=== PATIENT | male | born 1945 | race Caucasian/White ===

== ENCOUNTER 2016-09-28 07:31 | Day surgery (SDC) | payer MEDICARE, OTHER ==
[2016-09-27 10:34] VITALS: BMI 23.1
[~2016-09-28 07:31] MED LIST: LACTATED RINGERS 1,000 ML IV SCH
[2016-09-28 08:13] VITALS: RESP 16; TEMP 98
[2016-09-28] MEDS ORDERED: PROPOFOL 10 MG/ML 20 ML VIAL IV ONE (08:47)
--- NOTE | 2016-09-28 09:11 | P.PCN ---
Date of Procedure: 09/28/16 Procedure(s) Performed: Brief history: Patient is a pleasant 71-year-old white male scheduled for an elective upper endoscopy as well as colonoscopy as a part of evaluation of GERD/history of colon polyps and family history of colon cancer. Mother was diagnosed with colon cancer at age 60. Procedure performed: Esophagogastroduodenoscopy with biopsy Colonoscopy with snare polypectomy Preoperative diagnosis: GERD History of colon polyps and family history of colon cancer Anesthesia: MAC Procedure: After informed consent was obtained from the patient was brought into the endoscopy unit and IV sedation was administered by anesthesia under continuous monitoring. Initially upper endoscopy was done. The Olympus GF 160 video endoscope was inserted inserted into the mouth and esophagus intubated without any difficulty and was gradually advanced into the stomach and duodenum and carefully examined. The bulb and second part of the duodenum appeared normal. The scope was then withdrawn into the stomach adequately insufflated with air and upon careful examination the antrum and mild gastritis and biopsies were done from this area. The body, cardia and fundus appeared normal. The scope was then withdrawn into the esophagus. Mall hiatal hernia noted. The GE junction was located at 40 cm to the incisors. It appeared regular with superficial erosions consistent with LA grade A reflux esophagitis Rest of the esophagus appeared normal. Patient tolerated the procedure well. At this time the patient continued to remain sedation. Initial digital rectal examination was normal. Olympus CF 160 video colonoscope was then inserted into the rectum and gradually advanced to the cecum without any difficulty. Careful examination was performed as the scope was gradually being withdrawn. The prep was excellent. The cecum, ascending colon, transverse colon, descending colon, sigmoid colon appeared normal. In the rectum; there was a 1 to polyp that was removed by snare polypectomy. The rectum appeared normal. Retroflexion was performed in the rectum and no lesions were noted. Patient tolerated the procedure well. Impression: 1. Upper endoscopy revealed mild gastritis and a leg grade A reflux esophagitis 2. Colonoscopy revealed 1 cm rectal sigmoid polyp status post polypectomy. Recommendations: Findings of this examination were discussed with the patient as well as his family. He was advised to follow with the biopsy results. If the biopsy shows a tubular adenoma he can have a repeat coloscopy in 5 years. He was also advised to start on Zantac 150 milligrams twice daily for 2 months and follow anti-reflux measures.
[2016-09-28 09:33] VITALS: BP 133/85; PULSE 65
== END 2016-09-28 09:55 | disposition home or self-care (01) ==
LOC: ORWHC2ENDO 07:31
PROVIDERS: ATTEND Internal Medicine Gastroenterology
DX: Z12.11 Encounter for screening for malignant neoplasm of colon (principal); D12.7 Benign neoplasm of rectosigmoid junction; K44.9 Diaphragmatic hernia without obstruction or gangrene; K29.50 Unspecified chronic gastritis without bleeding; K21.0 Gastro-esophageal reflux disease with esophagitis; Z80.0 Family history of malignant neoplasm of digestive organs; Z86.010 Personal history of colon polyps; I25.10 Atherosclerotic heart disease of native coronary artery without angina pectoris; I10 Essential (primary) hypertension; Z87.891 Personal history of nicotine dependence; I25.2 Old myocardial infarction; E78.5 Hyperlipidemia, unspecified; N40.0 Benign prostatic hyperplasia without lower urinary tract symptoms; Z79.82 Long term (current) use of aspirin; Z79.899 Other long term (current) drug therapy; Z88.5 Allergy status to narcotic agent; Z88.8 Allergy status to other drugs, medicaments and biological substances
CPT/HCPCS: 88305; 88342; 45385; 43239; J2704

== ENCOUNTER → 2017-02-11 | Outpatient (CLI) | payer MEDICARE, OTHER ==
--- NOTE | 2017-02-11 18:07 | MR ---
EXAMINATION TYPE: MR shoulder RT wo con DATE OF EXAM: 02/11/2017 COMPARISON: None HISTORY: Right shoulder pain TECHNIQUE: Multiplanar, multisequence imaging of the right shoulder is performed without contrast. FINDINGS: Rotator Cuff: Abnormal increased signal present within the rotator cuff on T2-weighted sequences and T1-weighted sequences. There is abnormal thickening present as well as frayed appearance, full-thickn ess tear is present which is partial. There is associated tendinopathy. There is a distal acromial sp ur. Acromioclavicular Joint: Hypertrophic change at the acromioclavicular joint causes mass effect on the musculotendinous junction of supraspinatus. Fluid signal is present in the subacromial subdeltoid bu rsa. Glenohumeral Joint: Intact Labrum: Abnormal increased signal is present in the glenoid labrum. This may represent some degenerat awilda change, no kvng labral tear is evident Biceps Tendon: Long head of biceps tendon shows fluid signal around its substance but is in normal po sition in the bicipital groove. Bone marrow signal: Subchondral edema change of the acromioclavicular joint, pseudocysts present in t he humeral head. Other: There may be some loose bodies present along the level of the subscapularis tendon. IMPRESSION: Partial full-thickness tear of the rotator cuff, extensive tendinopathy, correlate for impingement. A dditional findings above.
== END ==
LOC: RADMRIMAIN 12:38
PROVIDERS: ATTEND Orthopaedic Surgery
DX: M75.101 Unspecified rotator cuff tear or rupture of right shoulder, not specified as traumatic (principal)

== ENCOUNTER 2018-10-18 07:32 | Observation (INO) | payer MEDICARE, OTHER ==
[2018-10-18] MEDS ORDERED: NITROGLYCERIN SL TABS 0.4 MG TAB SUBLINGUAL STA (08:00)
[2018-10-18] MEDS ORDERED: HYDROmorphone 1 MG/ML 1 ML SYRINGE IVP STA (08:00)
[2018-10-18 08:03] LABS: Basophils # (A) 0.1 k/uL (0-0.2); Basophils % (A) 1 %; Eosinophils # (A) 0.7 k/uL (0-0.7); Eosinophils % (A) 6 %; HCT 45.9 % (39.0-53.0); HGB 15.1 gm/dL (13.0-17.5); Lymphocytes # (A) 2.5 k/uL (1.0-4.8); Lymphocytes % (A) 22 %; MCH 29.8 pg (25.0-35.0); MCHC 32.8 g/dL (31.0-37.0); MCV 90.9 fL (80.0-100.0); Mean Platelet Volume 8.3; Monocytes # (A) 0.5 k/uL (0-1.0); Monocytes % (A) 5 %; Neutrophils # (A) 7.5 k/uL (1.3-7.7); Neutrophils % (A) 65 %; Platelet Count 207 k/uL (150-450); RBC 5.06 m/uL (4.30-5.90); RDW 13.3 % (11.5-15.5); WBC 11.5 k/uL (3.8-10.6)
--- NOTE | 2018-10-18 08:11 | ED ---
General Adult HPI - General Chief complaint: Chest Pain Stated complaint: COLETTE Time Seen by Provider: 10/18/18 07:33 Source: patient, RN notes reviewed, old records reviewed Mode of arrival: wheelchair Limitations: no limitations - History of Present Illness Initial comments: 73-year-old male presents for evaluation of dyspnea and chest pain. Patient's symptoms began 3 weeks prior. 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 Patient has no previous history of asthma. He has had minimal cough with his dyspnea. His denied any significant chest pain until approximately one hour prior to arrival he developed some anterior left-sided chest pain and back pain. Patient denied nausea or diaphoresis associated with symptoms. No vomiting or diarrhea. No fever or chills. No previous history of congestive heart failure, or DVT or PE. - Related Data Home Medications Medication Instructions Recorded Confirmed Aspirin 81 mg PO DAILY 10/13/13 10/18/18 Simvastatin [Zocor] 20 mg PO HS 10/13/13 10/18/18 Aloe Vera Juice 8 oz PO BID 09/15/15 10/18/18 Carvedilol [Coreg] 3.125 mg PO DAILY 09/15/15 10/18/18 Cholecalciferol [Vitamin D3] 2,000 unit PO DAILY 09/15/15 10/18/18 Tart Hare Juice 2 oz PO DAILY 09/15/15 10/18/18 Ubidecarenone [Co Q-10] 200 mg PO HS 09/15/15 10/18/18 Albuterol Sulfate [Proair Hfa] 2 puff INHALATION RT-Q6H PRN 10/18/18 10/18/18 Montelukast [Singulair] 10 mg PO DAILY 10/18/18 10/18/18 Allergies Allergy/AdvReac Type Severity Reaction Status Date / Time tramadol HCl [From Ultram] Allergy Severe migraine Verified 10/18/18 08:56 headache, anxiety, depression warfarin sodium Allergy Severe Anaphylaxis Verified 10/18/18 08:56 [From Coumadin] codeine Allergy hives, Verified 10/18/18 08:56 palpitations soap AdvReac skin Uncoded 09/28/16 08:14 irritation Review of Systems ROS Statement: Those systems with pertinent positive or pertinent negative responses have been documented in the HPI. ROS Other: All systems not noted in ROS Statement are negative. Past Medical History Past Medical History: Cancer, GERD/Reflux, GI Bleed, Hyperlipidemia, Hypertension, Myocardial Infarction ([place]), Osteoarthritis (OA), Prostate Disorder, Skin Disorder Additional Past Medical History / Comment(s): Hx Ulcers YEARS AGO. BPH. Hx Skin CA. OR 2012. RECENT ELEV BLOOD PRESSURE EPISODES. Last Myocardial Infarction Date:: 2012 History of Any Multi-Drug Resistant Organisms: None Reported Past Surgical History: Cholecystectomy, Heart Catheterization With Stent Additional Past Surgical History / Comment(s): 09/23/15 Anterior cervical decompression fusion C5-6, C 6-7 with NIM. Left Hand 5TH Finger REPAIR. COLONOSCOPY. Past Anesthesia/Blood Transfusion Reactions: No Reported Reaction Date of Last Stent Placement:: 06/2012 Past Psychological History: No Psychological Hx Reported Smoking Status: Former smoker Past Alcohol Use History: None Reported Past Drug Use History: None Reported - Past Family History Mother Family Medical History: Cancer, Memory Impairment, Renal Disease Additional Family Medical History / Comment(s): Mother had skin, colon and uterine cancer. She of a OR while being tx for a kidney stone at the age of 63 yrs. Father History Unknown: Yes Sister(s) Family Medical History: Cancer General Exam Limitations: no limitations General appearance: alert, in no apparent distress Head exam: Present: atraumatic, normocephalic Eye exam: Present: normal appearance, PERRL ENT exam: Present: normal exam Neck exam: Present: normal inspection. Absent: tenderness, meningismus Respiratory exam: Present: wheezes (Scattered wheezing) Cardiovascular Exam: Present: regular rate, normal rhythm GI/Abdominal exam: Present: soft. Absent: distended, tenderness Extremities exam: Present: normal inspection, normal capillary refill, other (Distal pulses intact, 2+). Absent: pedal edema Back exam: Present: normal inspection, full ROM. Absent: tenderness Neurological exam: Present: alert, oriented X3, CN II-XII intact. Absent: motor sensory deficit Psychiatric exam: Present: normal affect, normal mood Skin exam: Present: warm, dry, intact. Absent: cyanosis, diaphoretic Course Vital Signs 10/18/18 10/18/18 10/18/18 07:36 07:39 07:48 Temperature 97.8 F Pulse Rate 82 74 Pulse Rate [ 81 Enrollment Management Coordinator ] Respiratory 18 17 Rate Blood Pressure 160/81 O2 Sat by Pulse 96 96 Oximetry 10/18/18 10/18/18 10/18/18 08:00 08:37 08:41 Temperature Pulse Rate 71 77 75 Pulse Rate [ Enrollment Management Coordinator ] Respiratory 14 16 16 Rate Blood Pressure 184/106 143/89 156/98 O2 Sat by Pulse 97 98 97 Oximetry 10/18/18 10/18/18 09:00 10:00 Temperature Pulse Rate 68 59 L Pulse Rate [ Enrollment Management Coordinator ] Respiratory 14 16 Rate Blood Pressure 120/78 132/73 O2 Sat by Pulse 94 L 96 Oximetry - Reevaluation(s) Reevaluation #1: 10/18/18 10:29 Chest pain significantly improved with nitroglycerin. EKG Findings - EKG Comments: EKG Findings:: EKG: Sinus rhythm with frequent PVC, left axis deviation, LVH, ventricular rate 79, CT interval 140, QRS duration 110, QTC [address] segment elevation. Medical Decision Making - Medical Decision Making 73-year-old male presenting with several weeks of dyspnea and the development of the anterior chest pain and back pain. EKG is sinus rhythm, with no ST segment elevation. Chest x-rays obtained, shows nodularity in the right lung base, and hyperinflation consistent with COPD, no focal pneumonia. Patient has normal CBC, normal CMP, troponin and BNP are negative. CT angiography is performed as patient had anterior chest pain related to the back and was quite hypertensive on arrival. This is negative for aortic dissection. Also negative for pulmonary embolism. Patient will be admitted for rule out of ACS. He's also treated for bronchospasm as he does have some scattered wheezing. Case discussed with admitting physician. - Lab Data Result diagrams: 10/18/18 07:55 10/18/18 07:55 Lab Results 10/18/18 10/18/18 10/18/18 Range/Units 07:55 07:55 07:55 WBC 11.5 H (3.8-10.6) k/uL RBC 5.06 (4.30-5.90) m/uL Hgb 15.1 (13.0-17.5) gm/dL Hct 45.9 (39.0-53.0) % MCV 90.9 (80.0-100.0) fL MCH 29.8 (25.0-35.0) pg MCHC 32.8 (31.0-37.0) g/dL RDW 13.3 (11.5-15.5) % Plt Count 207 (150-450) k/uL Neutrophils % 65 % Lymphocytes % 22 % Monocytes % 5 % Eosinophils % 6 % Basophils % 1 % Neutrophils # 7.5 (1.3-7.7) k/uL Lymphocytes # 2.5 (1.0-4.8) k/uL Monocytes # 0.5 (0-1.0) k/uL Eosinophils # 0.7 (0-0.7) k/uL Basophils # 0.1 (0-0.2) k/uL PT (9.0-12.0) sec INR (<1.2) APTT (22.0-30.0) sec Sodium 139 (137-145) mmol/L Potassium 4.0 (3.5-5.1) mmol/L Chloride 105 (98-107) mmol/L Carbon Dioxide 25 (22-30) mmol/L Anion Gap 9 mmol/L BUN 13 (9-20) mg/dL Creatinine 0.73 (0.66-1.25) mg/dL Est GFR (CKD-EPI)AfAm >90 (>60 ml/min/1.73 sqM) Est GFR (CKD-EPI)NonAf >90 (>60 ml/min/1.73 sqM) Glucose 172 H (74-99) mg/dL Calcium 9.6 (8.4-10.2) mg/dL Magnesium 1.9 (1.6-2.3) mg/dL Total Bilirubin 0.7 (0.2-1.3) mg/dL AST 32 (17-59) U/L ALT 44 (21-72) U/L Alkaline Phosphatase 50 (38-126) U/L Troponin I (0.000-0.034) ng/mL NT-Pro-B Natriuret Pep 104 pg/mL Total Protein 7.1 (6.3-8.2) g/dL Albumin 4.4 (3.5-5.0) g/dL Lipase 131 (23-300) U/L 10/18/18 10/18/18 Range/Units 07:55 07:55 WBC (3.8-10.6) k/uL RBC (4.30-5.90) m/uL Hgb (13.0-17.5) gm/dL Hct (39.0-53.0) % MCV (80.0-100.0) fL MCH (25.0-35.0) pg MCHC (31.0-37.0) g/dL RDW (11.5-15.5) % Plt Count (150-450) k/uL Neutrophils % % Lymphocytes % % Monocytes % % Eosinophils % % Basophils % % Neutrophils # (1.3-7.7) k/uL Lymphocytes # (1.0-4.8) k/uL Monocytes # (0-1.0) k/uL Eosinophils # (0-0.7) k/uL Basophils # (0-0.2) k/uL PT 10.4 (9.0-12.0) sec INR 1.0 (<1.2) APTT 22.8 (22.0-30.0) sec Sodium (137-145) mmol/L Potassium (3.5-5.1) mmol/L Chloride (98-107) mmol/L Carbon Dioxide (22-30) mmol/L Anion Gap mmol/L BUN (9-20) mg/dL Creatinine (0.66-1.25) mg/dL Est GFR (CKD-EPI)AfAm (>60 ml/min/1.73 sqM) Est GFR (CKD-EPI)NonAf (>60 ml/min/1.73 sqM) Glucose (74-99) mg/dL Calcium (8.4-10.2) mg/dL Magnesium (1.6-2.3) mg/dL Total Bilirubin (0.2-1.3) mg/dL AST (17-59) U/L ALT (21-72) U/L Alkaline Phosphatase (38-126) U/L Troponin I <0.012 (0.000-0.034) ng/mL NT-Pro-B Natriuret Pep pg/mL Total Protein (6.3-8.2) g/dL Albumin (3.5-5.0) g/dL Lipase (23-300) U/L Critical Care Time Critical Care Time: Yes Total Critical Care Time: 35 Disposition Clinical Impression: Unstable angina pectoris, Chest pain Disposition: ADMITTED IP TO THIS HOSP Condition: Stable Is patient prescribed a controlled substance at d/c from ED?: No Referrals: Silvia Rivera III, MD [Primary Care Provider] - 1-2 days Decision to Admit Reason: Admit from EC Decision Date: 10/18/18 Decision Time: 10:33
[2018-10-18 08:14] LABS: Partial Thromboplastin Time 22.8 sec (22.0-30.0); Prothrombin Time 10.4 sec (9.0-12.0)
[2018-10-18 08:25] LABS: ALT 44 U/L (21-72); AST 32 U/L (17-59); Albumin 4.4 g/dL (3.5-5.0); Alkaline Phosphatase 50 U/L (38-126); Anion Gap 9 mmol/L; Blood Urea Nitrogen 13 mg/dL (9-20); Calcium 9.6 mg/dL (8.4-10.2); Carbon Dioxide 25 mmol/L (22-30); Chloride 105 mmol/L (98-107); Glucose 172 mg/dL (74-99); Lipase 131 U/L (23-300); Magnesium 1.9 mg/dL (1.6-2.3); Sodium 139 mmol/L (137-145); Total Bilirubin 0.7 mg/dL (0.2-1.3); Total Protein 7.1 g/dL (6.3-8.2)
--- NOTE | 2018-10-18 08:25 | XR ---
EXAMINATION TYPE: XR chest 2V DATE OF EXAM: 10/18/2018 COMPARISON: 09/14/2015 HISTORY: 73-year-old male with chest pain TECHNIQUE: PA and lateral views FINDINGS: Heart normal size. Aorta shows mild atherosclerotic arch calcifications. Pulmonary vasculature within normal limits. Mild hyperinflation. Subtle nodularity at the right base. ACF hardware. No consolidat ion or pleural effusion. Cholecystectomy clips on the lateral view. IMPRESSION: COPD. No acute cardiopulmonary process. Subtle nodularity at the right base, suspected nipple shadow. Given patient's increased risk for deve lopment of lung cancer, nonemergent follow-up CT chest recommended to exclude underlying pulmonary no dule.
[2018-10-18] MEDS ORDERED: NITROGLYCERIN-D5W PMX 50 MG in DEXTROSE/WATER 1 250ML.BAG IV ONE (10:09)
--- NOTE | 2018-10-18 10:11 | CT ---
EXAMINATION TYPE: CT angio thor/abd pel aorta DATE OF EXAM: 10/18/2018 COMPARISON: None HISTORY: 73-year-old male chest tightness mid abdominal and mid back pain. TECHNIQUE: Contiguous axial scanning of the chest, abdomen, and pelvis performed without and with IV Contrast, patient injected with 100 mL of Isovue 370. Coronal/sagittal MIP reconstructions performed. 3-D reconstructions generated on a dedicated independent workstation. CT DLP: 1090.8 mGycm Automated exposure control for dose reduction was used. FINDINGS: Chest: Heart normal size without pericardial effusion. Coronary vessel calcifications are present. A few scattered prominent mediastinal lymph nodes measuring up to 8 mm. No thoracic lymphadenopathy b y CT size criteria. A few scattered punctate centrilobular nodules peripherally in the upper lungs can be seen with respi ratory bronchiolitis especially if the patient is a smoker. No consolidation or pleural effusion. ABDOMEN: Arterial phase imaging of the liver, adrenal glands, kidneys, spleen, and pancreas appear within norm al limits. Bile duct dilated at 1.2 cm likely chronic in this patient status post cholecystectomy. 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 No dilated small bowel, free fluid, or free air. No mesenteric or retroperitoneal lymphadenopathy. Normal appendix. Scattered [id number] stool. Rectum is distended up to 6.2 cm with stool. No pe ricolonic inflammatory change. Pelvis: Bladder urine distended. A bladder wall diverticulum measuring 5.0 cm posteriorly, on the left. Centr al prostatic calcifications with the prostate gland measuring 4.3 cm wide. No abnormal fluid collecti on the pelvis or pelvic lymphadenopathy. Mildly patulous left inguinal canal. Bones: Degenerative changes of the hips and left SI joint. Mild/moderate degenerative disc disease L5-S1. Fa cet arthropathy lower lumbar spine. No osseous destructive process. Vasculature: The aorta is normal-caliber with mild atherosclerotic arch calcifications and conventional arch vesse l branching anatomy. No evidence for aortic dissection. Initial noncontrast images show no evidence f or acute intramural hematoma. Mild atherosclerotic calcifications at the origin of the celiac axis and SMA. Bilateral grant lila al arteries. Mild atherosclerotic calcifications continuing to the infrarenal abdominal aorta and iliac arteries. Mild fusiform dilatation infrarenal abdominal aorta up to 2.4 cm. No kvng ectasia or aneurysm. No evidence for pulmonary embolism. IMPRESSION: 1. NO EVIDENCE FOR AORTIC DISSECTION, ANEURYSM, ACUTE INTRAMURAL HEMATOMA, OR OTHER ACUTE AORTIC INJU RY. 2. NO EVIDENCE FOR PULMONARY EMBOLUS. 3. A 5.0 CM LEFT POSTERIOR BLADDER WALL DIVERTICULUM.
[2018-10-18] MEDS ORDERED: DEXAMETHASONE SOD PHOSPHATE 10 MG/ML 1 ML VIAL IV STA ×2 (10:17→12:27)
[2018-10-18] MEDS ORDERED: HEPARIN SODIUM,PORCINE 5,000 UNIT/ML 1 ML VIAL IV PRN (10:17)
[2018-10-18] MEDS ORDERED: HEPARIN SODIUM,PORCINE 5,000 UNIT/ML 1 ML VIAL IV ONE (10:17)
[2018-10-18] MEDS ORDERED: IPRATROPIUM-ALBUTEROL 3 ML NEB INHALATION STA (10:17)
[2018-10-18] MEDS ORDERED: ACETAMINOPHEN TAB 325 MG TAB PO PRN (10:27)
[2018-10-18] MEDS ORDERED: NALOXONE 0.4 MG/ML 1 ML VIAL IV PRN (10:27)
[2018-10-18] MEDS ORDERED: MORPHINE SULFATE 4 MG/ML SYRINGE IV PRN (10:27)
[2018-10-18] MEDS: HEPARIN SOD,PORK IN 0.45% NACL 25,000 UNIT in 0.45% NACL 1 250ML.BAG IV SCH (10:49)
[2018-10-18] MEDS: ASPIRIN 325 MG TAB PO STA (10:49)
[2018-10-18 12:39] VITALS: RESP 18
[2018-10-18] MEDS ORDERED: ALBUTEROL NEBULIZED 2.5 MG/3 ML INHALATION PRN (14:18)
--- NOTE | 2018-10-18 15:02 | P.HPIM ---
History of Present Illness 73-year-old pleasant gentleman came in with compensative shortness of breath has been going on for some time patient apparently has ALLERGIES and the suspected to have asthma and bronchitis is being treated for those things with the albuterol. Didn't take any steroids patient is started having chest pressure like sensation after eating, in the retrosternal area does not believe this is acid reflux. This radiates to the back pressure-like sensation nonradiating on doses with diagnosis not associated with lightheadedness. Patient denied any fever chills chest x-ray did not show any pneumonic processes that may be a small nodule on the CAT scan which is not clearly characterizable patient may need another CAT scan as an outpatient. Denied any present smoking history quit smoking years ago. Patient had a stress test about any ago which was negative and patient had a colic catheterization and stents about 5 years ago. Patient chest pain is mild 4/10 in severity which is even better than that now lasted for few hours nitroglycerin partially helped him. Review of Systems REVIEW OF SYSTEMS: CONSTITUTIONAL: No fever, no malaise, no fatigue. HEENT: No recent visual problems or hearing problems. Denied any sore throat. CARDIOVASCULAR: No orthopnea, PND, no palpitations, no syncope. PULMONARY: No shortness of breath, no cough, no hemoptysis. GASTROINTESTINAL: No diarrhea, no nausea, no vomiting, no abdominal pain. NEUROLOGICAL: No headaches, no weakness, no numbness. HEMATOLOGICAL: Denies any bleeding or petechiae. GENITOURINARY: Denies any burning micturition, frequency, or urgency. MUSCULOSKELETAL/RHEUMATOLOGICAL: Denies any joint pain, swelling, or any muscle pain. ENDOCRINE: Denies any polyuria or polydipsia. The rest of the 14-point review of systems is negative. Past Medical History Past Medical History: Cancer, GERD/Reflux, GI Bleed, Hyperlipidemia, Hypertension, Myocardial Infarction ([place]), Osteoarthritis (OA), Prostate Disorder, Skin Disorder Additional Past Medical History / Comment(s): Bronchitis, sinus infections, upper GI bleed/stomach ulcers, arthritis in multiple joints, BPH with surgery, skin cancer removals, benign polyps Last Myocardial Infarction Date:: 2013 History of Any Multi-Drug Resistant Organisms: None Reported Past Surgical History: Cholecystectomy, Heart Catheterization With Stent, Prosta te Surgery Additional Past Surgical History / Comment(s): 09/23/15 Anterior cervical decompression fusion C5-6, C 6-7, Left Hand 5TH Finger REPAIR/GANGLION CYST REMOVED, R HAND RING FINGER TRIGGER RELEASE, COLONOSCOPY, TURP, SKIN CANCER REMOVALS. Past Anesthesia/Blood Transfusion Reactions: No Reported Reaction Date of Last Stent Placement:: 06/2013 Smoking Status: Former smoker - Past Family History Mother Family Medical History: Cancer, Memory Impairment, Renal Disease Additional Family Medical History / Comment(s): Mother had skin, colon and uterine cancer. She of a [place] while being tx for a kidney stone at the age of 63 yrs. Father History Unknown: Yes Additional Family Medical History / Comment(s): Pt did not know his father but found out recently that his father had commited suicide at the age of 29yrs. Sister(s) Family Medical History: Cancer Medications and Allergies Home Medications Medication Instructions Recorded Confirmed Type Aspirin 81 mg PO DAILY 10/13/13 10/18/18 History Simvastatin [Zocor] 20 mg PO HS 10/13/13 10/18/18 History Aloe Vera Juice 8 oz PO BID 09/15/15 10/18/18 History Carvedilol [Coreg] 3.125 mg PO DAILY 09/15/15 10/18/18 History Cholecalciferol [Vitamin D3] 2,000 unit PO DAILY 09/15/15 10/18/18 History Tart Hare Juice 2 oz PO DAILY 09/15/15 10/18/18 History Ubidecarenone [Co Q-10] 200 mg PO HS 09/15/15 10/18/18 History Albuterol Sulfate [Proair Hfa] 2 puff INHALATION RT-Q6H PRN 10/18/18 10/18/18 History Montelukast [Singulair] 10 mg PO DAILY 10/18/18 10/18/18 History Allergies Allergy/AdvReac Type Severity Reaction Status Date / Time tramadol HCl [From Ultram] Allergy Severe migraine Verified 10/18/18 08:56 headache, anxiety, depression warfarin sodium Allergy Severe Anaphylaxis Verified 10/18/18 08:56 [From Coumadin] codeine Allergy hives, Verified 10/18/18 08:56 palpitations soap AdvReac skin Uncoded 09/28/16 08:14 irritation Physical Exam Vitals: Vital Signs Temp Pulse Pulse Pulse Resp BP BP 10/18/18 12:37 98.2 F 71 18 152/86 10/18/18 12:19 65 16 148/89 10/18/18 12:00 67 15 10/18/18 11:00 133/78 10/18/18 10:38 68 10/18/18 10:30 62 10/18/18 10:00 59 L 16 132/73 10/18/18 09:00 68 14 120/78 10/18/18 08:41 75 16 156/98 10/18/18 08:37 77 16 143/89 10/18/18 08:00 71 14 184/106 10/18/18 07:48 74 17 10/18/18 07:39 81 10/18/18 07:36 97.8 F 82 18 160/81 Pulse Ox 10/18/18 12:37 96 10/18/18 12:19 97 10/18/18 12:00 95 10/18/18 11:00 10/18/18 10:38 10/18/18 10:30 10/18/18 10:00 96 10/18/18 09:00 94 L 10/18/18 08:41 97 10/18/18 08:37 98 10/18/18 08:00 97 10/18/18 07:48 96 10/18/18 07:39 10/18/18 07:36 96 Intake and Output 10/17/18 10/18/18 10/18/18 22:59 06:59 14:59 Intake Total 240 Balance 240 Intake: Oral 240 Other: Weight 70.307 kg PHYSICAL EXAMINATION: GENERAL: The patient is alert and oriented x3, not in any acute distress. Well developed, well nourished. HEENT: Pupils are round and equally reacting to light. EOMI. No scleral icterus. No conjunctival pallor. Normocephalic, atraumatic. No pharyngeal erythema. No thyromegaly. CARDIOVASCULAR: S1 and S2 present. No murmurs, rubs, or gallops. PULMONARY: Chest is clear to auscultation, no wheezing or crackles. ABDOMEN: Soft, nontender, nondistended, normoactive bowel sounds. No palpable organomegaly. MUSCULOSKELETAL: No joint swelling or deformity. EXTREMITIES: No cyanosis, clubbing, or pedal edema. NEUROLOGICAL: Gross neurological examination did not reveal any focal deficits. SKIN: No rashes. Results CBC & Chem 7: 10/18/18 07:55 10/18/18 07:55 Labs: Abnormal Lab Results - Last 24 Hours (Table) 10/18/18 10/18/18 Range/Units 07:55 07:55 WBC 11.5 H (3.8-10.6) k/uL Glucose 172 H (74-99) mg/dL Thrombosis Risk Factor Assmnt - Choose All That Apply Any of the Below Risk Factors Present?: Yes Other Risk Factors: Yes Each Risk Factor Represents 2 Points: Age 61-74 years, Malignancy Other congenital or acquired thrombophilia - If yes, enter type in comment: No Thrombosis Risk Factor Assessment Total Risk Factor Score: 4 Thrombosis Risk Factor Assessment Level: Moderate Risk Assessment and Plan Plan: 1 chest pain: We'll rule out unstable angina, acute coronary syndromes. Etiology of his chest pain is not clear patient was started on Pepcid as well patient had a cholecystectomy in the past. Cardiology will evaluate the patient. Further Decision regarding repeat stress test as per cardiology. -Seasonal ALLERGIES patient is not wheezing presently do not have any evidence of asthma at this time. -Possible pulmonary nodule for which patient will repeat a chest CAT scan as an outpatient -Coronary artery disease -Gastroesophageal reflux disease -Hypertension -Benign prostatic hypertrophy
[2018-10-18] MEDS ORDERED: ATORVASTATIN 10 MG TAB PO SCH (21:00)
[2018-10-18] MEDS: FAMOTIDINE 20 MG TAB PO SCH (21:06)
[2018-10-19 07:40] VITALS: TEMP 97.8
[2018-10-19 08:29] LABS: Basophils % (A) 0 %; Eosinophils % (A) 0 %; HCT 43.9 % (39.0-53.0); HGB 14.7 gm/dL (13.0-17.5); Lymphocytes # (A) 1.9 k/uL (1.0-4.8); Lymphocytes % (A) 13 %; MCH 30.1 pg (25.0-35.0); MCHC 33.5 g/dL (31.0-37.0); MCV 89.7 fL (80.0-100.0); Mean Platelet Volume 8.7; Monocytes # (A) 0.4 k/uL (0-1.0); Monocytes % (A) 3 %; Neutrophils # (A) 12.4 k/uL (1.3-7.7); Neutrophils % (A) 84 %; Platelet Count 201 k/uL (150-450); RBC 4.89 m/uL (4.30-5.90); RDW 13.8 % (11.5-15.5); WBC 14.8 k/uL (3.8-10.6)
[2018-10-19] MEDS ORDERED: ASPIRIN 81 MG PO SCH (09:00)
[2018-10-19] MEDS ORDERED: MONTELUKAST 10 MG TAB PO SCH (09:00)
[2018-10-19] MEDS ORDERED: ALPRAZolam 0.5 MG TAB PO PRN (10:23)
[2018-10-19] MEDS ORDERED: SODIUM CHLORIDE 0.9% 1,000 ML in EMPTY BAG 1 BAG IV ONE (10:23)
[2018-10-19] MEDS ORDERED: ALPRAZolam 0.25 MG TAB PO PRN (10:23)
--- NOTE | 2018-10-19 10:27 | P.CRDCN ---
History of Present Illness History of present illness: This is a pleasant 73-year-old male past medical history significant for coronary artery disease status post stent placement to the proximal RCA in the setting of an acute myocardial infarction in 2013, hypertension, dyslipidemia, gastroesophageal reflux disease and former nicotine dependence. He follows in the office with Dr. Calderon. We have been asked to see him in consultation secondary to chest pain. He states approximately 3 weeks ago he started feeling increasingly short of breath and states that he was wheezing. He denies any prior history of asthma or COPD in the past. He states his shortness of breath sometimes was worse with exertion but also came at rest. He denies any cough. Initially he had no symptoms of chest discomfort he just felt as though it was tightness midsternal region every time he was short of breath. However yesterday he started feeling a heavy pressure sensation in the left precordial region like someone was pressing on his chest that was radiating through to his back. At that time he was not acutely short of breath. He denies any associated symptoms of nausea, vomiting, palpitations or diaphoresis. He states the symptoms did start after he ate records however did not feel at all like his reflux disease he has had the past. His symptoms of chest discomfort lasted for approximately 2-3 hours after arrival to the emergency department and ultimately subsided on their own. He is seen and examined resting comfortably in bed in no acute distress. He denies any further symptoms of chest discomfort. He states he received a breathing treatment upon arrival to the emergency department that did help his shortness of breath. EKG reveals sinus mechanism, left axis deviation, incomplete right bundle branch block and frequent PVCs. No acute ST or T-wave abnormalities. Chest x-ray shows mild atherosclerotic arch calcifications in the aorta, mild hyperinflation suggestive of COPD and a subtle nodularity at the right base suspicious for a nipple shadow however CT follow-up recommended. Overall no acute cardiopulmonary process. Laboratory data reviewed, WBC on admission 11.5 repeat this morning 14.8, hemoglobin 14.7, platelets 201, sodium 139, potassium 4.0, creatinine 0.73, magnesium 1.9, cardiac enzymes negative 3, NT proBNP 104. Current cardiac medications include carvedilol 3.125 mg twice a day, aspirin 81 mg daily and simvastatin 20 mg daily. Most recent stress test performed in the office in October 2017 was a Cardiolite stress test which revealed a fixed inferior and inferolateral defect with mild impaired LV systolic function with no reversible cardiac ischemia. Most recent echocardiogram obtained in October 2017 revealed preserved LV systolic function with ejection fraction 55%. Cardiac catheterization obtained in 2013 revealed a lesion approximately 25% in the proximal circumflex and a 99% proximal RCA lesion. He underwent successful stent placement to the proximal RCA at that time. At the time of my exam: CONSTITUTIONAL: Denies fever. Denies chills. EYES: Denies blurred vision. Denies vision changes. Denies eye pain. EARS, NOSE, MOUTH & THROAT: Denies headache. Denies sore throat. Denies ear pain. CARDIOVASCULAR: Denies chest pain. Complains of mild shortness of breath. Denies orthopnea. Denies PND. Denies palpitations. RESPIRATORY: Denies cough. GASTROINTESTINAL: Denies abdominal pain. Denies diarrhea. Denies constipation. Denies nausea. Denies vomiting. MUSCULOSKELETAL: Denies myalgias. INTEGUMENTARY: Denies pruitis. Denies rash. NEUROLOGIC: Denies numbness. Denies tingling. Denies weakness. PSYCHIATRIC: Denies anxiety. Denies depression. ENDOCRINE: Denies fatigue. Denies weight change. Denies polydipsia. Denies polyurina. GENITOURINARY: Denies burning, hematuria or urgency with micturation. HEMATOLOGIC: Denies history of anemia. Denies bleeding. Blood pressure 130/77 heart rate 79 afebrile maintaining oxygen saturation on room air GENERAL: This is a 73-year-old male in no apparent distress at the time of my examination. HEENT: Head is atraumatic, normocephalic. Pupils are equal, round. Sclerae anicteric. Conjunctivae are clear. Mucous membranes of the mouth are moist. Neck is supple. There is no jugular venous distention. No carotid bruit is heard. LUNGS: Clear to auscultation no wheezes, rales or rhonchi. No chest wall tenderness is noted on palpation or with deep breathing. HEART: Regular rate and rhythm without murmurs, rubs or gallops. S1 and S2 heard. ABDOMEN: Soft, nontender. Bowel sounds are heard. No organomegaly noted. EXTREMITIES: No evidence of peripheral edema and no calf tenderness noted. VASCULAR: Radial and dorsalis pedis pulses palpated, no evidence of clubbing. NEUROLOGIC: Patient is awake, alert and oriented x3. ASSESSMENT Chest pain and exertional shortness of breath suggestive of possible unstable angina History of coronary artery disease status post stent placement to the proximal RCA with 25% proximal circumflex disease in the setting of a myocardial infarction Hypertension Dyslipidemia Gastroesophageal reflux disease Former nicotine dependence PLAN We recommend proceeding with cardiac catheterization to further assess for progression of coronary artery disease. His symptoms of exertional shortness of breath may be related to unstable angina in a patient with a known history of coronary artery disease. No evidence of heart failure, clinically the patient is euvolemic. I have discussed the risks, benefits and alternative therapies for the above- mentioned procedure and for both sedation/analgesia as well as necessary blood product administration, if indicated, as they pertain to this patient. The p atient has indicated understanding and acceptance of the risks and procedures discussed. Questions have been answered appropriately and he is agreeable to move forward with the above-stated procedure. This has been discussed with his primary tank hoop bender, Dr. Calderon and he will study the patient today. Obtain 2-D echocardiogram and Doppler study to assess cardiac structure and function. Continue carvedilol, aspirin and simvastatin as previously ordered. Further recommendations to follow based upon clinical course. Thank you kindly for this consultation. Nurse Practitioner note has been reviewed, I agree with a documented findings and plan of care. Patient was seen and examined. Past Medical History Past Medical History: Cancer, GERD/Reflux, GI Bleed, Hyperlipidemia, Hypertension, Myocardial Infarction ([place]), Osteoarthritis (OA), Prostate Diso rder, Skin Disorder Additional Past Medical History / Comment(s): Bronchitis, sinus infections, upper GI bleed/stomach ulcers, arthritis in multiple joints, BPH with surgery, skin cancer removals, benign polyps Last Myocardial Infarction Date:: 2013 History of Any Multi-Drug Resistant Organisms: None Reported Past Surgical History: Cholecystectomy, Heart Catheterization With Stent, Prostate Surgery Additional Past Surgical History / Comment(s): 09/23/15 Anterior cervical decompression fusion C5-6, C 6-7, Left Hand 5TH Finger REPAIR/GANGLION CYST REMOVED, R HAND RING FINGER TRIGGER RELEASE, COLONOSCOPY, TURP, SKIN CANCER REMOVALS. Past Anesthesia/Blood Transfusion Reactions: No Reported Reaction Date of Last Stent Placement:: 06/2013 Smoking Status: Former smoker - Past Family History Mother Family Medical History: Cancer, Memory Impairment, Renal Disease Additional Family Medical History / Comment(s): Mother had skin, colon and uterine cancer. She of a [place] while being tx for a kidney stone at the age of 63 yrs. Father History Unknown: Yes Additional Family Medical History / Comment(s): Pt did not know his father but found out recently that his father had commited suicide at the age of 29yrs. Sister(s) Family Medical History: Cancer Medications and Allergies Home Medications Medication Instructions Recorded Confirmed Type Aspirin 81 mg PO DAILY 10/13/13 10/18/18 History Simvastatin [Zocor] 20 mg PO HS 10/13/13 10/18/18 History Aloe Vera Juice 8 oz PO BID 09/15/15 10/18/18 History Carvedilol [Coreg] 3.125 mg PO DAILY 09/15/15 10/18/18 History Cholecalciferol [Vitamin D3] 2,000 unit PO DAILY 09/15/15 10/18/18 History Tart Hare Juice 2 oz PO DAILY 09/15/15 10/18/18 History Ubidecarenone [Co Q-10] 200 mg PO HS 09/15/15 10/18/18 History Albuterol Sulfate [Proair Hfa] 2 puff INHALATION RT-Q6H PRN 10/18/18 10/18/18 History Montelukast [Singulair] 10 mg PO DAILY 10/18/18 10/18/18 History Allergies Allergy/AdvReac Type Severity Reaction Status Date / Time tramadol HCl [From Ultram] Allergy Severe migraine Verified 10/18/18 08:56 headache, anxiety, depression warfarin sodium Allergy Severe Anaphylaxis Verified 10/18/18 08:56 [From Coumadin] codeine Allergy hives, Verified 10/18/18 08:56 palpitations soap AdvReac skin Uncoded 09/28/16 08:14 irritation Physical Exam Vitals: Vital Signs Temp Pulse Pulse Resp BP BP Pulse Ox 10/19/18 08:28 74 10/19/18 07:48 18 10/19/18 07:20 97.8 F 79 18 130/77 95 10/19/18 04:00 97.5 F L 74 18 115/67 94 L 10/19/18 03:34 18 10/19/18 00:00 97.6 F 74 18 95/55 95 10/18/18 20:00 18 10/18/18 19:14 98.1 F 84 18 145/64 96 10/18/18 17:10 78 10/18/18 16:59 76 95 10/18/18 16:00 97.8 F 74 18 155/89 96 10/18/18 12:37 98.2 F 71 18 152/86 96 10/18/18 12:19 65 16 148/89 97 10/18/18 12:00 67 15 95 10/18/18 11:00 133/78 10/18/18 10:38 68 10/18/18 10:30 62 Intake and Output 10/18/18 10/19/18 10/19/18 22:59 06:59 14:59 Intake Total 491.325 Balance 491.325 Intake: Intake, IV Titration 51.325 Amount Heparin Sod,Pork in 0.45% 51.325 NaCl 25,000 unit In 0.45 % NaCl 1 250ml.bag @ 12 UNITS/KG/HR 8.437 mls/hr IV .Q24H [facility] Rx#: [id number] Oral 240 Other 200 Other: # Voids 1 1 Results 10/19/18 07:48 10/18/18 07:55 Cardiac Enzymes 10/18/18 10/18/18 Range/Units 13:59 19:42 Troponin I <0.012 <0.012 (0.000-0.034) ng/mL Coagulation 10/18/18 10/18/18 10/19/18 Range/Units 16:08 23:16 07:48 APTT 39.4 H 50.0 H 50.1 H (22.0-30.0) sec CBC 10/19/18 Range/Units 07:48 WBC 14.8 H (3.8-10.6) k/uL RBC 4.89 (4.30-5.90) m/uL Hgb 14.7 (13.0-17.5) gm/dL Hct 43.9 (39.0-53.0) % Plt Count 201 (150-450) k/uL Current Medications Generic Name Dose Route Start Last Admin Trade Name Freq PRN Reason Stop Dose Admin Acetaminophen 650 mg 10/18/18 10:27 Tylenol Tab PO Q6HR PRN Mild Pain or Fever > 100.5 Albuterol Sulfate 2.5 mg 10/18/18 14:18 10/18/18 16:59 Ventolin Nebulized INHALATION 2.5 mg RT-Q6H PRN Administration Shortness of breath Aspirin 81 mg 10/19/18 09:00 Aspirin PO DAILY [facility] Atorvastatin Calcium 10 mg 10/18/18 21:00 10/18/18 21:05 Lipitor PO 10 mg HS [facility] Administration Famotidine 20 mg 10/18/18 21:00 10/18/18 21:06 Pepcid PO Not Given BID [facility] Heparin Sodium (Porcine) 0 unit 10/18/18 10:17 Heparin IV PER PROTOCOL PRN Low PTT Protocol Heparin Sodium/Sodium Chloride 250 mls @ 8.437 mls/hr 10/18/18 10:30 10/18/18 16:54 25,000 unit/ Sodium Chloride IV 15 units/kg/hr .Q24H [facility] 10.546 mls/hr Titration Protocol 12 UNITS/KG/HR Montelukast Sodium 10 mg 10/19/18 09:00 Singulair PO DAILY [facility] Morphine Sulfate 4 mg 10/18/18 10:27 Morphine Sulfate (Inj) IV Q4HR PRN Severe Pain Naloxone HCl 0.2 mg 10/18/18 10:27 Narcan IV Q2M PRN Opioid Reversal Intake and Output 10/18/18 10/19/18 10/19/18 22:59 06:59 14:59 Intake Total 491.325 Balance 491.325 Intake: Intake, IV Titration 51.325 Amount Heparin Sod,Pork in 0.45% 51.325 NaCl 25,000 unit In 0.45 % NaCl 1 250ml.bag @ 12 UNITS/KG/HR 8.437 mls/hr IV .Q24H [facility] Rx#: [id number] Oral 240 Other 200 Other: # Voids 1 1 10/19/18 07:48 10/18/18 07:55
[2018-10-19] MEDS: FAMOTIDINE 20 MG TAB PO SCH (10:44)
[2018-10-19] MEDS: ASPIRIN 325 MG TAB PO STA (10:44)
[2018-10-19] MEDS: HEPARIN SOD,PORK IN 0.45% NACL 25,000 UNIT in 0.45% NACL 1 250ML.BAG IV SCH (10:56)
[2018-10-19] MEDS ORDERED: CARVEDILOL 3.125 MG TAB PO SCH (11:00)
[2018-10-19 11:51] LABS: Cholesterol 161 mg/dL (<200); HDL Cholesterol 64 mg/dL (40-60); LDL Cholesterol,Calculated 79 mg/dL (0-99); Triglycerides 92 mg/dL (<150)
[2018-10-19] MEDS ORDERED: VERAPAMIL 2.5 MG/ML 2 ML AMP ONE (11:52)
[2018-10-19] MEDS ORDERED: LIDOCAINE 1% INJ 10MG/ML (20 ML MDV) ONE (11:52)
[2018-10-19] MEDS ORDERED: fentaNYL (PF) 50 MCG/ML 2 ML AMP ONE (11:53)
[2018-10-19] MEDS ORDERED: HEPARIN SODIUM 1,000 UN/ML (10ML VL) ONE (11:53)
[2018-10-19] MEDS ORDERED: IV FLUID CONTINUATION 350 ML IV ONE (11:57)
[2018-10-19] MEDS ORDERED: fentaNYL (PF) 50 MCG/ML 2 ML AMP IV ONE (12:35)
[2018-10-19] MEDS ORDERED: LIDOCAINE 1% INJ 10MG/ML (20 ML MDV) SQ ONE (12:36)
[2018-10-19] MEDS ORDERED: VERAPAMIL SYRINGE (5 MG/10 ML) INTRAARTER ONE (12:39)
[2018-10-19] MEDS ORDERED: HEPARIN SODIUM 1,000 UN/ML (10ML VL) IV ONE (12:46)
[2018-10-19] MEDS ORDERED: IOPAMIDOL-370 125ML BTL INJ ONE (12:50)
[2018-10-19] MEDS ORDERED: RX INFO: IV CONTRAST WAS GIVEN 1 EACH MISC MISCELLANE PRN (13:06)
[2018-10-19] MEDS ORDERED: SODIUM CHLORIDE 0.9% 1,000 ML IV SCH (13:15)
--- NOTE | 2018-10-19 15:59 | P.DS ---
Providers Date of admission: 10/18/18 10:27 Attending physician: Hannah Mauricio Consults: 10/18/18 10:28 Consult Physician Routine Consulting Provider: Justin Calderon Consult Reason/Comments: Unstable angina Do you want consulting provider notified?: Yes Primary care physician: Silvia Vicente [facility] Course: Patient was admitted for chest pain and underwent a catheterization which did not show any significant atherosclerotic coronary occlusive disease. Shortness of breath improved patient will benefit from pulmonary function tests I cannot prove asthma yet. PHYSICAL EXAMINATION: GENERAL: The patient is alert and oriented x3, not in any acute distress. Well developed, well nourished. HEENT: Pupils are round and equally reacting to light. EOMI. No scleral icterus. No conjunctival pallor. Normocephalic, atraumatic. No pharyngeal erythema. No thyromegaly. CARDIOVASCULAR: S1 and S2 present. No murmurs, rubs, or gallops. PULMONARY: Chest is clear to auscultation, no wheezing or crackles. ABDOMEN: Soft, nontender, nondistended, normoactive bowel sounds. No palpable organomegaly. MUSCULOSKELETAL: No joint swelling or deformity. EXTREMITIES: No cyanosis, clubbing, or pedal edema. NEUROLOGICAL: Gross neurological examination did not reveal any focal deficits. SKIN: No rashes. Other chronic medical problems and hospitalization course please refer to HPI Patient Condition at Discharge: Stable Plan - Discharge Summary Discharge Rx Participant: No New Discharge Prescriptions: Continue Simvastatin [Zocor] 20 mg PO HS Aspirin 81 mg PO DAILY Carvedilol [Coreg] 3.125 mg PO DAILY Aloe Vera Juice 8 oz PO BID Cholecalciferol [Vitamin D3 (25 Mcg = 1000 Iu)] 2,000 unit PO DAILY Ubidecarenone [Co Q-10] 200 mg PO HS Tart Hare Juice 2 oz PO DAILY Montelukast [Singulair] 10 mg PO DAILY Albuterol Sulfate [Proair Hfa] 2 puff INHALATION RT-Q6H PRN PRN Reason: Pain Discharge Medication List Aspirin 81 mg PO DAILY 10/13/13 [History] Simvastatin [Zocor] 20 mg PO HS 10/13/13 [History] Aloe Vera Juice 8 oz PO BID 09/15/15 [History] Carvedilol [Coreg] 3.125 mg PO DAILY 09/15/15 [History] Cholecalciferol [Vitamin D3 (25 Mcg = 1000 Iu)] 2,000 unit PO DAILY 09/15/15 [History] Tart Hare Juice 2 oz PO DAILY 09/15/15 [History] Ubidecarenone [Co Q-10] 200 mg PO HS 09/15/15 [History] Albuterol Sulfate [Proair Hfa] 2 puff INHALATION RT-Q6H PRN 10/18/18 [History] Montelukast [Singulair] 10 mg PO DAILY 10/18/18 [History] Follow up Appointment(s)/Referral(s): Justin Calderon MD [STAFF PHYSICIAN] - 1 Week Silvia Rivera III, MD [Primary Care Provider] - 1-2 days Rachel Eugene MD [STAFF PHYSICIAN] - 1 Week Discharge Disposition: HOME SELF-CARE
[2018-10-19 16:16] VITALS: BP 142/75; PULSE 95
--- NOTE | 2018-10-19 17:39 | CC ---
CARDIAC CATHETERIZATION REPORT Mr. Jimenez is a 73-year-old male with known history of coronary artery disease, status post percutaneous revascularization and stenting of inferior myocardial infarction in [place]. He presented with symptoms of progressive dyspnea as well as chest discomfort. He was evaluated by Dr. Song Mcmahon and recommendation was made regarding cardiac catheterization. The procedure, its risks and complications were discussed with the patient, who was in full understanding and agreement. PROCEDURE: Patient was brought to the cath lab manager in a fasting, semi-sedated state after receiving fentanyl and Benadryl and achieving a moderate conscious sedated state. Using Xylocaine anesthesia and Seldinger technique, a 6-Persian sheath was introduced in the right radial artery. Selective right and left coronary angiography was performed using 5-Persian 3-1/2 bend right and left Dante catheters. Multiple views of the arteries, including hemiaxial views, were obtained. Following that, a 5-Persian tight pigtail catheter was introduced in the left ventricle and a 30-degree NUNEZ view of the left ventricle was obtained. Following that, catheter and sheaths were removed. Hemostasis was obtained with deployment of a TR band. There was no immediate complication. Patient was returned to his room in stable condition. Of note, the patient received 3500 units of intravenous heparin as well as intra-arterial verapamil. FINDINGS: LEFT MAIN: This is a large-sized vessel bifurcating into left circumflex, left anterior descending artery. Left main coronary artery has no evidence of high-grade stenosis. LEFT ANTERIOR DESCENDING ARTERY: This is a large-sized vessel reaching toward the apex with a wrap around apex segment giving rise to 2 diagonal branches. The left anterior descending artery proximally has a 20% plaque. The rest of the vessel has no high- grade stenosis. LEFT CIRCUMFLEX: This is a moderate nondominant vessel giving rise to 2 obtuse marginal branches. The left circumflex proximally has a 20% to 30% plaque without any evidence of high-grade stenosis. RIGHT CORONARY ARTERY: This is a large dominant vessel bifurcating distally into PDA and posterolateral segment and branches. The right PDA reaches toward the inferoapical wall. The stented segment in the proximal right coronary artery is patent. There is mild intimal trace of re-stenosis with about 30%. The rest of the vessel has no high- grade stenosis. LEFT VENTRICULOGRAM: Left ventriculogram was performed in 30-degree NUNEZ view and revealed mid inferior wall akinesis. Ejection fraction was estimated at 45%. There was arrhythmia-induced mitral regurgitation. HEMODYNAMICS: There was no gradient across the aortic valve. The left ventricular end-diastolic pressure was 10 to 14 mmHg. CONCLUSION: 1. No evidence of re-stenosis in the stented segment of the right coronary artery with mild intimal disease. 2. Mild to moderate disease in the left circumflex and the LAD. 3. Mildly impaired left ventricular systolic function. RECOMMENDATIONS: In view of findings and anatomy, I have recommended continued medical therapy with the aggressive coronary risk modifications that have been initiated. Those findings and recommendation were discussed with the patient and his family, who are in full understanding and agreement. Duration of procedure was 20 minutes. MMODL / IJN: [id number] /
== END 2018-10-19 17:10 | disposition home or self-care (01) ==
LOC: EC 07:32 → 1SOBS 10:27
PROVIDERS: ADMIT Internal Medicine; ATTEND Internal Medicine
DX: R07.89 Other chest pain (principal); J98.01 Acute bronchospasm; R06.00 Dyspnea, unspecified; K21.9 Gastro-esophageal reflux disease without esophagitis; E78.5 Hyperlipidemia, unspecified; I10 Essential (primary) hypertension; I25.2 Old myocardial infarction; M19.90 Unspecified osteoarthritis, unspecified site; N40.0 Benign prostatic hyperplasia without lower urinary tract symptoms; J30.2 Other seasonal allergic rhinitis; I25.10 Atherosclerotic heart disease of native coronary artery without angina pectoris; Z87.891 Personal history of nicotine dependence; Z87.19 Personal history of other diseases of the digestive system; Z87.09 Personal history of other diseases of the respiratory system; Z87.11 Personal history of peptic ulcer disease; Z85.828 Personal history of other malignant neoplasm of skin; Z90.49 Acquired absence of other specified parts of digestive tract; Z95.5 Presence of coronary angioplasty implant and graft; Z98.1 Arthrodesis status; Z79.82 Long term (current) use of aspirin; Z79.899 Other long term (current) drug therapy; Z88.5 Allergy status to narcotic agent; Z88.8 Allergy status to other drugs, medicaments and biological substances; Z91.048 Other nonmedicinal substance allergy status; Z80.0 Family history of malignant neoplasm of digestive organs; Z80.8 Family history of malignant neoplasm of other organs or systems; Z81.8 Family history of other mental and behavioral disorders; Z84.1 Family history of disorders of kidney and ureter
CPT/HCPCS: 96366 ×3; 96375; 96376; 96365; 99291; 36415; 94640 ×2; 93005; 93458; 83880; 80061; 80053; 83690; 83735; 84484; 85025 ×2; 85610; 85730 ×2; 71046; 71275; 74174; G0378 ×2; C1894; C1769; J1644 ×3; J1100; J2001; J3010; Q9967 ×2

== ENCOUNTER 2021-02-11 22:38 | Emergency (ER) | payer MEDICARE, OTHER ==
[2021-02-11] MEDS ORDERED: ACETAMINOPHEN TAB 325 MG TAB PO STA (23:38)
--- NOTE | 2021-02-11 23:51 | ED ---
General Adult HPI - General Chief complaint: Shortness of Breath Stated complaint: + covid sob Time Seen by Provider: 02/11/21 23:25 Source: patient, RN notes reviewed Mode of arrival: ambulatory Limitations: no limitations - History of Present Illness Initial comments: 75-year-old male presents emergency Department chief complaint of his weakness, COVID-19. Patient states started symptoms on Monday with fevers chills bodyaches he's had increasing cough he does have underlying asthma denies any significant shortness of breath states she's had some nausea without vomiting has been taking Tylenol states he is unable take ibuprofen. Patient states presents today for monoclonal antibodies. - Related Data Home Medications Medication Instructions Recorded Confirmed Aspirin 81 mg PO DAILY 10/13/13 10/18/18 Simvastatin [Zocor] 20 mg PO HS 10/13/13 10/18/18 Aloe Vera Juice 8 oz PO BID 09/15/15 10/18/18 Carvedilol [Coreg] 3.125 mg PO DAILY 09/15/15 10/18/18 Cholecalciferol [Vitamin D3 (25 2,000 unit PO DAILY 09/15/15 10/18/18 Mcg = 1000 Iu)] Tart Hare Juice 2 oz PO DAILY 09/15/15 10/18/18 Ubidecarenone [Co Q-10] 200 mg PO HS 09/15/15 10/18/18 Albuterol Sulfate [Proair Hfa] 2 puff INHALATION RT-Q6H PRN 10/18/18 10/18/18 Montelukast [Singulair] 10 mg PO DAILY 10/18/18 10/18/18 Previous Rx's Medication Instructions Recorded Dexamethasone 6 mg PO DAILY #5 tablet 02/12/21 Allergies Allergy/AdvReac Type Severity Reaction Status Date / Time tramadol HCl [From Ultram] Allergy Severe migraine Verified 02/11/21 23:09 headache, anxiety, depression warfarin sodium Allergy Severe Anaphylaxis Verified 02/11/21 23:09 [From Coumadin] codeine Allergy hives, Verified 02/11/21 23:09 palpitations soap AdvReac skin Uncoded 02/11/21 23:09 irritation Review of Systems ROS Statement: Those systems with pertinent positive or pertinent negative responses have been documented in the HPI. ROS Other: All systems not noted in ROS Statement are negative. Past Medical History Past Medical History: Cancer, GERD/Reflux, GI Bleed, Hyperlipidemia, Hypertension, Myocardial Infarction ([place]), Osteoarthritis (OA), Prostate Disorder, Skin Disorder Additional Past Medical History / Comment(s): Bronchitis, sinus infections, upper GI bleed/stomach ulcers, arthritis in multiple joints, BPH with surgery, skin cancer removals, benign polyps Last Myocardial Infarction Date:: 2013 History of Any Multi-Drug Resistant Organisms: None Reported Past Surgical History: Cholecystectomy, Heart Catheterization With Stent, Prostate Surgery Additional Past Surgical History / Comment(s): 09/23/15 Anterior cervical decompression fusion C5-6, C 6-7, Left Hand 5TH Finger REPAIR/GANGLION CYST REMOVED, R HAND RING FINGER TRIGGER RELEASE, COLONOSCOPY, TURP, SKIN CANCER REM OVALS. Past Anesthesia/Blood Transfusion Reactions: No Reported Reaction Date of Last Stent Placement:: 06/2013 Past Psychological History: No Psychological Hx Reported Smoking Status: Former smoker Past Alcohol Use History: None Reported Past Drug Use History: None Reported - Past Family History Mother Family Medical History: Cancer, Memory Impairment, Renal Disease Additional Family Medical History / Comment(s): Mother had skin, colon and uterine cancer. She of a [place] while being tx for a kidney stone at the age of 63 yrs. Father History Unknown: Yes Additional Family Medical History / Comment(s): Pt did not know his father but found out recently that his father had commited suicide at the age of 29yrs. Sister(s) Family Medical History: Cancer General Exam Limitations: no limitations General appearance: alert, in no apparent distress Head exam: Present: atraumatic, normocephalic, normal inspection Eye exam: Present: normal appearance, PERRL, EOMI. Absent: scleral icterus, conjunctival injection, periorbital swelling ENT exam: Present: normal exam, normal oropharynx Neck exam: Present: normal inspection, full ROM. Absent: tenderness Respiratory exam: Present: normal lung sounds bilaterally. Absent: respiratory distress, wheezes, rales, rhonchi, stridor Cardiovascular Exam: Present: regular rate, normal rhythm, normal heart sounds. Absent: systolic murmur, diastolic murmur, rubs, gallop, clicks GI/Abdominal exam: Present: soft, normal bowel sounds. Absent: distended, tenderness, guarding, rebound, rigid Course Vital Signs 02/11/21 02/12/21 23:04 00:16 Temperature 100 F H 103 F H Pulse Rate 98 104 H Respiratory 22 18 Rate Blood Pressure 160/91 103/72 O2 Sat by Pulse 95 96 Oximetry Medical Decision Making - Medical Decision Making 75-year-old male presented for COVID-19. Patient x-ray does not show any significant pneumonia. Patient vitals have been stable, patient did receive m onoclonal antibodies will be discharged in stable condition. Disposition Clinical Impression: COVID-19 Disposition: HOME SELF-CARE Condition: Stable Instructions (If sedation given, give patient instructions): Coronavirus Disease 2019 (COVID-19) Additional Instructions: Please return to the Emergency Department if symptoms worsen or any other concerns. Prescriptions: Dexamethasone 6 mg PO DAILY #5 tablet Is patient prescribed a controlled substance at d/c from ED?: No Referrals: Silvia Rivera III, MD [Primary Care Provider] - 1-2 days Time of Disposition: 00:20
--- NOTE | 2021-02-11 23:58 | XR ---
EXAMINATION TYPE: XR chest 2V DATE OF EXAM: 02/11/2021 COMPARISON: 10/18/2018 HISTORY: Short of breath TECHNIQUE: FINDINGS: Heart and mediastinum are normal. There is very slight blunting left costophrenic angle. Th ere are no hilar masses. Thoracic aorta is atheromatous. Bony thorax is intact. IMPRESSION: Minimal pleural reaction lateral left lung base appears new compared to old exam. Normal heart.
[2021-02-12] MEDS ORDERED: SODIUM CHLORIDE 0.9% 50 ML IVPB ONE (00:30)
[2021-02-12] MEDS ORDERED: CASIRIVIMAB/IMDEVIMAB (EUA) 1,200 MG in SODIUM CHLORIDE 0.9% 100 ML IVPB ONE (00:30)
[2021-02-12] MEDS ORDERED: ONDANSETRON 4 MG ODT STARTER PACK 2 TAB BTL PO STA (01:09)
[2021-02-12 02:39] VITALS: BP 148/80; PULSE 85; RESP 18; TEMP 101.7
== END 2021-02-12 02:39 | disposition home or self-care (01) ==
LOC: EC 22:38
DX: U07.1 COVID-19 (principal); I10 Essential (primary) hypertension; E78.5 Hyperlipidemia, unspecified; I25.2 Old myocardial infarction; J45.909 Unspecified asthma, uncomplicated; K21.9 Gastro-esophageal reflux disease without esophagitis; M19.90 Unspecified osteoarthritis, unspecified site; N40.0 Benign prostatic hyperplasia without lower urinary tract symptoms; Z79.52 Long term (current) use of systemic steroids; Z79.82 Long term (current) use of aspirin; Z79.899 Other long term (current) drug therapy; Z82.49 Family history of ischemic heart disease and other diseases of the circulatory system; Z85.828 Personal history of other malignant neoplasm of skin; Z87.891 Personal history of nicotine dependence; Z90.49 Acquired absence of other specified parts of digestive tract; Z90.79 Acquired absence of other genital organ(s)
CPT/HCPCS: 71046; 99284; 96365; 96361; S0119; Q0243

== ENCOUNTER → 2021-11-02 | Outpatient (CLI) | payer MEDICARE, OTHER ==
[2021-11-02 10:45] LABS: HCT 47.2 % (39.6-50.0); HGB 15.5 g/dL (13.0-17.0); MCH 30.2 pg (27.0-32.0); MCHC 32.8 g/dL (32.0-37.0); Mean Platelet Volume 11.4 fL (9.5-12.2); NRBC Per 100 WBC 0 /100 WBCS (0.0-0.0); Platelet Count 195 X 10*3/uL (140-440); RBC 5.13 X 10*6/uL (4.40-5.60); WBC 8.89 X 10*3/uL (4.50-10.00)
[2021-11-02 11:03] LABS: African American GFR (CKD) 104.5 (60.0-200.0); Anion Gap 10.1 mmol/L (10.00-18.00); Blood Urea Nitrogen 14.3 mg/dL (9.0-27.0); Carbon Dioxide 25.7 mmol/L (20.0-27.5); Non-African American GFR(CKD) 90.2 (60.0-200.0); Potassium 4.5 mmol/L (3.5-5.5)
== END | disposition home or self-care (01) ==
LOC: LABPAT 07:05
PROVIDERS: ATTEND Internal Medicine Interventional Cardiology
DX: Z01.812 Encounter for preprocedural laboratory examination (principal); I25.10 Atherosclerotic heart disease of native coronary artery without angina pectoris
CPT/HCPCS: 80051; 82565; 84520; 85027

== ENCOUNTER → 2021-11-03 | Day surgery (SDC) | payer MEDICARE, OTHER ==
[2021-11-02 11:57] VITALS: BMI 22.7
[~2021-11-03] MED LIST changes: +ALPRAZolam 0.25 MG TAB PO PRN; +ALPRAZolam 0.5 MG TAB PO PRN; +ASPIRIN 325 MG TAB PO STA; +ASPIRIN 81 MG PO SCH; +CHOLECALCIFEROL 125 MCG (5000 IU) TABLET PO SCH; +EZETIMIBE 10 MG TAB PO SCH; +HEPARIN SODIUM 1,000 UN/ML (10ML VL) IV ONE; +IOPAMIDOL-370 125ML BTL INJ ONE; -LACTATED RINGERS 1,000 ML IV SCH; +LIDOCAINE 1% INJ 10MG/ML (5 ML VIAL-PF) SQ ONE; +LOSARTAN 25 MG TAB PO SCH; +NITROGLYCERIN SL TABS 0.4 MG TAB SUBLINGUAL PRN; +NON FORMULARY DRUG (Cyanocobalamin (Vitamin B-12) [Vitamin B-12] 1,000 MCG Tablet) PO SCH; +NON FORMULARY DRUG (Lysine [L-Lysine] 500 MG Tablet) PO SCH; +NON FORMULARY DRUG (Simvastatin 40 MG Tab) PO SCH; +RX INFO: IV CONTRAST WAS GIVEN 1 EACH MISC MISCELLANE PRN; +SODIUM CHLORIDE 0.9% 1,000 ML IV SCH; +SODIUM CHLORIDE 0.9% 1,000 ML in EMPTY BAG 1 BAG IV SCH; +VERAPAMIL SYRINGE (5 MG/10 ML) INTRAARTER ONE; +[UNRECOGNIZED DRUG - OTHER] PO SCH; +carvediloL 3.125 MG TAB PO SCH; +fentaNYL (PF) 50 MCG/ML 2 ML AMP IVP ONE
[2021-11-03 07:11] VITALS: RESP 16; TEMP 98
[2021-11-03 07:22] LABS: Basophils # (A) 0.1 k/uL (0-0.2); Basophils % (A) 1 %; Eosinophils # (A) 0.2 k/uL (0-0.7); Eosinophils % (A) 2 %; HCT 45.1 % (39.0-53.0); HGB 15.4 gm/dL (13.0-17.5); Lymphocytes # (A) 2.5 k/uL (1.0-4.8); Lymphocytes % (A) 29 %; MCH 31.4 pg (25.0-35.0); MCV 92.1 fL (80.0-100.0); Mean Platelet Volume 8.5; Monocytes # (A) 0.5 k/uL (0-1.0); Monocytes % (A) 6 %; Neutrophils # (A) 5.1 k/uL (1.3-7.7); Neutrophils % (A) 60 %; Platelet Count 207 k/uL (150-450); WBC 8.5 k/uL (3.8-10.6)
[2021-11-03 07:35] LABS: African American GFR (CKD) >90 (>60 ml/min/1.73 sqM); Anion Gap 9 mmol/L; Blood Urea Nitrogen 12 mg/dL (9-20); Calcium 9.1 mg/dL (8.4-10.2); Carbon Dioxide 23 mmol/L (22-30); Chloride 104 mmol/L (98-107); Glucose 108 mg/dL (74-99); Non-African American GFR(CKD) >90 (>60 ml/min/1.73 sqM); Potassium 4.6 mmol/L (3.5-5.1); Sodium 136 mmol/L (137-145)
--- NOTE | 2021-11-03 08:34 | P.CARDCATH ---
Date of Procedure: 11/03/21 Description of Procedure: Cardiac Catheterization: The patient is a 76-year-old male with a known history of CAD, post stenting of the RCA history of hypertension and hyperlipidemia who has been complaining of progressive dyspnea and fatigue. He had a drop ejection fraction on his nuclear scan. Recommendations were made regarding cardiac catheterization, the risks and the complications were discussed with the patient who is in full understanding and agreement. Procedure Description: Patient was brought to labelling machine operator in fasting semi-sedated state after receiving Fentanyl and Benadryl achieiving moderate conscious sedated state. Using Xylocaine Anesthesia and Seldinger technique, a 6-Bhutanese sheath was introduced in the right radial artery . Subsequently, selective coronary angiography performed using a 5-Bhutanese feet 3.5 bend Dante catheter. Multiple views of the coronary artery including hemiaxial views were obtained. The 5-Bhutanese pigtail catheter was used to cross the aortic valve and LVEDP was calculated. Left ventriculogram was performed in the NUNEZ view. Following that, catheter and sheath were removed. Hemostasis was obtained with deployment of TR band . There was no immediate complication. Patient was returned to room in stable condition. Of note, the patient received a total of 35 units of intravenous heparin as well as intra-arterial verapamil. There was no immediate complications. Findings: Left main: This is a large-size vessel, bifurcating into LAD and circumflex, l eft main has no high-grade stenosis LAD: This is a large-size vessel, reaching to the apex giving rise to 2 diagonal branch the LAD has mild disease in the midsegment of 10-20% Left circumflex: This is a nondominant vessel, moderate caliber, giving rise to 2 OM. The left circumflex and its branches has mild diffuse intimal disease of 20-30%. RCA: This is a dominant vessel, large in caliber, bifurcating into PDA and PLV. The stented segment in the proximal RCA is patent. It is diffuse intimal disease of 30-40% Left Ventriculogram: Was performed in the NUNEZ view and revealed mid inferior wall akinesis, ejection fraction 45% with no significant MR Hemodynamics: There was no gradient across the aortic valve, LVEDP 14-16 mmHg Conclusion: 1. Mild to moderate triple-vessel disease 2. With patent stent in the RCA 3. Mildly impaired systolic function with segmental wall motion abnormality 4. No gradient across the aortic valve Recommendations: I have recommended to continue present therapy with aggressive coronary risks modifications. The findings and recommendations were discussed with the patient and his family, they are in full understanding and agreement. Duration of sedation is 21 minutes.
[2021-11-03 09:52] VITALS: BP 137/71; PULSE 56
--- NOTE | 2021-11-04 19:42 | P.ANPRN ---
Procedure Note - Anesthesia - Nerve Block Performed Right Supraclavicular Single Time Out Performed: Yes Date of Procedure: 11/03/21 Procedure Start Time: 14:29 Procedure Stop Time: 14:35 Location of Patient: PreOp Indication: Acute Post-Operative Pain, Requested by Surgeon Sedation Type: Sedate with meaningful contact maintained Preparation: Sterile Prep Position: Supine Needle Types: Pajunk Needle Gauge: 21 Ultrasound used to visualize needle placement: Yes Ultrasound used to observe medication spread: Yes Blood Aspirated: No Pain Paresthesia on Injection Noted: No Resistance on Injection: Normal Image Stored and Saved: Yes Events: Uneventful and Well Tolerated (ropi .5% 20cc plus dexamethasone 4mg)
== END | disposition home or self-care (01) ==
LOC: CATHCVL 06:27
PROVIDERS: ATTEND Internal Medicine Interventional Cardiology
DX: I25.10 Atherosclerotic heart disease of native coronary artery without angina pectoris (principal); I10 Essential (primary) hypertension; E78.5 Hyperlipidemia, unspecified; Z20.822 Contact with and (suspected) exposure to COVID-19; G89.18 Other acute postprocedural pain
CPT/HCPCS: 93458; 80048; 85025; 87635; C1894; C1769 ×2; J2001; J3010; J1644; Q9967

== ENCOUNTER 2024-12-03 14:48 | Emergency (ER) | payer MEDICARE, OTHER ==
[2024-12-03 15:16] VITALS: BP 146/82; PULSE 70; RESP 18; TEMP 97.9
--- NOTE | 2024-12-03 15:42 | ED ---
General Adult HPI - General Chief complaint: Abdominal Pain Stated complaint: Abd Pain Time Seen by Provider: 12/03/24 15:25 Source: patient, EMS, RN notes reviewed Mode of arrival: EMS Limitations: no limitations - History of Present Illness Initial comments: Patient is a 79-year-old male present to the emergency department with concerns with right flank pain. Onset of symptoms was over an hour ago. This was following eating. Patient did develop right sided abdominal discomfort laterally, somewhat severe with associated nausea. Discomfort moved downward and then improved. When EMS arrived discomfort was down to 4/10. Discomfort is now down to 2/10. No history of similar symptoms previously. No fever. No urinary symptoms - Related Data Home Medications Medication Instructions Recorded Confirmed Aspirin 81 mg PO DAILY 10/13/13 03/16/23 Simvastatin [Zocor] 20 mg PO HS 10/13/13 03/16/23 Tart Hare Juice 2 tbsp PO DAILY 09/15/15 03/16/23 Ubidecarenone [Co Q-10] 200 mg PO DAILY 09/15/15 03/16/23 Cholecalciferol [Vitamin D3 (125 125 mcg PO DAILY 11/02/21 03/16/23 Mcg = 5000 Iu)] Cyanocobalamin (Vitamin B-12) 1,000 mcg PO DAILY 11/02/21 03/16/23 [Vitamin B-12] Ezetimibe [Zetia] 10 mg PO DAILY 11/02/21 03/16/23 Fluticasone/Vilanterol [Breo 1 puff INHALATION RT-DAILY PRN 11/02/21 03/16/23 Ellipta 100-25 Mcg Inhaler] Lysine [l-Lysine] 500 mg PO DAILY 11/02/21 03/16/23 Magnesium Orinate 1,250 mg PO DAILY 11/02/21 03/16/23 Losartan [Cozaar] 25 mg PO DAILY 03/16/23 03/16/23 carvediloL [Coreg] 3.125 mg PO HS 03/16/23 03/16/23 Allergies Allergy/AdvReac Type Severity Reaction Status Date / Time tramadol HCl [From Ultram] Allergy Severe migraine Verified 12/03/24 15:15 headache, anxiety, depression warfarin sodium Allergy Severe Anaphylaxis Verified 12/03/24 15:15 [From Coumadin] codeine Allergy Rash/Hives Verified 12/03/24 15:15 soap AdvReac skin Uncoded 12/03/24 15:15 irritation Review of Systems ROS Statement: Those systems with pertinent positive or pertinent negative responses have been documented in the HPI. ROS Other: All systems not noted in ROS Statement are negative. Constitutional: Denies: fever Eyes: Denies: eye pain ENT: Denies: throat pain Cardiovascular: Denies: chest pain Gastrointestinal: Reports: as per HPI, abdominal pain, nausea. Denies: vomiting, diarrhea, constipation Genitourinary: Denies: urgency, dysuria, hematuria Musculoskeletal: Denies: back pain Skin: Denies: rash Neurological: Denies: weakness Past Medical History Past Medical History: Cancer, GERD/Reflux, GI Bleed, Hyperlipidemia, Hypertension, Myocardial Infarction ([place]), Osteoarthritis ([place]), Prostate Disorder, Skin Disorder Additional Past Medical History / Comment(s): Bronchitis, sinus infections, upper GI bleed/stomach ulcers, arthritis in multiple joints, BPH with surgery, skin cancer removals, benign polyps Last Myocardial Infarction Date:: 2013 History of Any Multi-Drug Resistant Organisms: None Reported Past Surgical History: Cholecystectomy, Heart Catheterization With Stent, Prostate Surgery Additional Past Surgical History / Comment(s): 09/23/15 Anterior cervical decompression fusion C5-6, C 6-7, Left Hand 5TH Finger REPAIR/GANGLION CYST REMOVED, R HAND RING FINGER TRIGGER RELEASE, COLONOSCOPY, TURP, SKIN CANCER REMOVALS. Past Anesthesia/Blood Transfusion Reactions: No Reported Reaction Date of Last Stent Placement:: 06/2013 Past Psychological History: No Psychological Hx Reported Smoking Status: Former smoker Past Alcohol Use History: None Reported Past Drug Use History: None Reported - Past Family History Mother Family Medical History: Cancer Additional Family Medical History / Comment(s): Mother had skin, colon and uterine cancer. Father History Unknown: Yes Additional Family Medical History / Comment(s): Pt did not know his father but found out recently that his father had commited suicide at the age of 29yrs. Sister(s) Family Medical History: Cancer General Exam Limitations: no limitations General appearance: alert, in no apparent distress Head exam: Present: normocephalic Eye exam: Present: normal appearance Neck exam: Present: normal inspection Respiratory exam: Present: normal lung sounds bilaterally Cardiovascular Exam: Present: regular rate, normal rhythm Expanded Peripheral pulses: 2+: Posterior Tibialis (R), Posterior Tibialis (L) GI/Abdominal exam: Present: soft. Absent: distended, tenderness, guarding, rebound, rigid, pulsatile mass Extremities exam: Present: normal inspection Back exam: Present: normal inspection. Absent: tenderness, CVA tenderness (R) Neurological exam: Present: alert. Absent: motor sensory deficit Psychiatric exam: Present: normal affect, normal mood Skin exam: Present: normal color Course Vital Signs 12/03/24 15:13 Temperature 97.9 F Pulse Rate 70 Respiratory 18 Rate Blood Pressure 146/82 O2 Sat by Pulse 96 Oximetry Medical Decision Making - Medical Decision Making Was pt. sent in by a medical professional or institution (, PA, PACKING LINE WORKER, urgent care, hospital, or long term...) When possible be specific @ -No Did you speak to anyone other than the patient for history (EMS, parent, family, police, friend...)? What history was obtained from this source @ -No Did you review nursing and triage notes (agree or disagree)? Why? @ -I reviewed and agree with nursing and triage notes Were old charts reviewed (outside hosp., previous admission, EMS record, old EKG, old radiological studies, urgent care reports/EKG's, long term records)? Report findings @ -No old charts were reviewed Differential Diagnosis (chest pain, altered mental status, abdominal pain women, abdominal pain men, vaginal bleeding, weakness, fever, dyspnea, syncope, headache, dizziness, GI bleed, back pain, seizure, CVA, palpatations, mental health, musculoskeletal)? @ -Differential Abdominal Pain Men: Appendicitis, cholecystitis, diverticulosis, ischemic bowel, pancreatitis, hepatitis, UTI, gastroenteritis, AAA, incarcerated hernia, bowel obstruction, constipation, inflammatory bowel, hepatitis, peptic ulcer disease, splenic infarction, perforated viscus, testicular torsion, this is not meant to be an all-inclusive list EKG interpreted by me (3pts min.). @ -As above X-rays interpreted by me (1pt min.). @ -None done CT interpreted by me (1pt min.). @ -None done U/S interpreted by me (1pt. min.). @ -None done What testing was considered but not performed or refused? (CT, X-rays, U/S, labs)? Why? @ -None What meds were considered but not given or refused? Why? @ -None Did you discuss the management of the patient with other professionals (professionals i.e. , PA, PACKING LINE WORKER, lab, RT, psych nurse, social staff worker, contract implementation analyst, teacher, plant protection officer, pillowcase cutter)? Give summary @ -No Was smoking cessation discussed for >3mins.? @ -No Was critical care preformed (if so, how long)? @ -No Were there social determinants of health that impacted care today? How? (Homelessness, low income, unemployed, alcoholism, drug addiction, trans portation, low edu. Level, literacy, decrease access to med. care, long-term, rehab)? @ -No Was there de-escalation of care discussed even if they declined (Discuss DNR or withdrawal of care, Hospice)? DNR status @ -No What co-morbidities impacted this encounter? (DM, HTN, Smoking, COPD, CAD, Cancer, CVA, ARF, Chemo, Hep., AIDS, mental health diagnosis, sleep apnea, morbid obesity)? @ -None Was patient admitted / discharged? Hospital course, mention meds given and route, prescriptions, significant lab abnormalities, going to OR and other pertinent info. @ -Patient presents with right-sided abdominal discomfort improved prior to arrival. On reevaluation patient symptom-free. Patient and family updated on results and need for follow-up Undiagnosed new problem with uncertain prognosis? @ -No Drug Therapy requiring intensive monitoring for toxicity (Heparin, Nitro, Insulin, Cardizem)? @ -No Were any procedures done? @ -No Diagnosis/symptom? @ -Abdominal pain Acute, or Chronic, or Acute on Chronic? @ -Acute Uncomplicated (without systemic symptoms) or Complicated (systemic symptoms)? @ -Default Side effects of treatment? @ -No Exacerbation, Progression, or Severe Exacerbation? @ -No Poses a threat to life or bodily function? How? (Chest pain, [place], [place], pneumonia, PE, COPD, DKA, ARF, appy, cholecystitis, CVA, Diverticulitis, Homicidal, Suicidal, threat to staff... and all critical care pts) @ -No - Lab Data Result diagrams: 12/03/24 15:33 12/03/24 15:33 Lab Results 12/03/24 12/03/24 12/03/24 Range/Units 15:30 15:33 15:33 WBC 9.16 (4.50-10.00) 10*3/uL RBC 4.62 (4.40-5.60) 10*6/uL Hgb 14.1 (13.0-17.0) g/dL Hct 41.3 (39.6-50.0) % MCV 89.4 (80.0-97.0) fL MCH 30.5 (27.0-32.0) pg MCHC 34.1 (32.0-37.0) g/dL Plt Count 197 (140-440) 10*3/uL MPV 10.3 (9.5-12.2) fL Immature Gran % (Auto) 0.3 % Neutrophils % 55.9 % Lymphocytes % 27.0 % Monocytes % 8.2 % Eosinophils % 7.4 % Basophils % 1.2 % Immature Gran # 0.03 (0.00-0.04) 10*3/uL Neutrophils # 5.12 (1.80-7.70) 10*3/uL Lymphocytes # 2.47 (0.90-5.00) 10*3/uL Monocytes # 0.75 (0.20-1.00) 10*3/uL Eosinophils # 0.68 H (0.04-0.35) 10*3/uL Basophils # 0.11 H (0.00-0.10) 10*3/uL PT 11.2 (10.0-12.5) sec INR 1.0 (<1.2) APTT 21.2 L (22.0-30.0) sec Sodium 138 (137-145) mmol/L Potassium 4.2 (3.5-5.1) mmol/L Chloride 104 (98-107) mmol/L Carbon Dioxide 24 (22-30) mmol/L Anion Gap 10 mmol/L BUN 12 (9-20) mg/dL Creatinine 0.57 L (0.66-1.25) mg/dL Est GFR (CKD-EPI)AfAm >90 (>60 ml/min/1.73 sqM) Est GFR (CKD-EPI)NonAf >90 (>60 ml/min/1.73 sqM) Glucose 125 H (74-99) mg/dL Plasma Lactic Acid Issa (0.7-2.0) mmol/L Calcium 9.7 (8.4-10.2) mg/dL Total Bilirubin 0.6 (0.2-1.3) mg/dL AST 108 H (17-59) U/L ALT 75 H (4-49) U/L Alkaline Phosphatase 61 (38-126) U/L Total Protein 6.5 (6.3-8.2) g/dL Albumin 4.1 (3.5-5.0) g/dL Amylase 64 (30-110) U/L Lipase 240 (23-300) U/L Urine Color Urine Appearance (Clear) Urine pH (5.0-8.0) Ur Specific [place] (1.001-1.035) Urine Protein (Negative) Urine Glucose (UA) (Negative) Urine Ketones (Negative) Urine Blood (Negative) Urine Nitrite (Negative) Urine Bilirubin (Negative) Urine Urobilinogen (<2.0) mg/dL Ur Leukocyte Esterase (Negative) 12/03/24 12/03/24 Range/Units 15:33 16:15 WBC (4.50-10.00) 10*3/uL RBC (4.40-5.60) 10*6/uL Hgb (13.0-17.0) g/dL Hct (39.6-50.0) % MCV (80.0-97.0) fL MCH (27.0-32.0) pg MCHC (32.0-37.0) g/dL Plt Count (140-440) 10*3/uL MPV (9.5-12.2) fL Immature Gran % (Auto) % Neutrophils % % Lymphocytes % % Monocytes % % Eosinophils % % Basophils % % Immature Gran # (0.00-0.04) 10*3/uL Neutrophils # (1.80-7.70) 10*3/uL Lymphocytes # (0.90-5.00) 10*3/uL Monocytes # (0.20-1.00) 10*3/uL Eosinophils # (0.04-0.35) 10*3/uL Basophils # (0.00-0.10) 10*3/uL PT (10.0-12.5) sec INR (<1.2) APTT (22.0-30.0) sec Sodium (137-145) mmol/L Potassium (3.5-5.1) mmol/L Chloride (98-107) mmol/L Carbon Dioxide (22-30) mmol/L Anion Gap mmol/L BUN (9-20) mg/dL Creatinine (0.66-1.25) mg/dL Est GFR (CKD-EPI)AfAm (>60 ml/min/1.73 sqM) Est GFR (CKD-EPI)NonAf (>60 ml/min/1.73 sqM) Glucose (74-99) mg/dL Plasma Lactic Acid Issa 1.3 (0.7-2.0) mmol/L Calcium (8.4-10.2) mg/dL Total Bilirubin (0.2-1.3) mg/dL AST (17-59) U/L ALT (4-49) U/L Alkaline Phosphatase (38-126) U/L Total Protein (6.3-8.2) g/dL Albumin (3.5-5.0) g/dL Amylase (30-110) U/L Lipase (23-300) U/L Urine Color Colorless Urine Appearance Clear (Clear) Urine pH 7.0 (5.0-8.0) Ur Specific [place] 1.006 (1.001-1.035) Urine Protein Negative (Negative) Urine Glucose (UA) Negative (Negative) Urine Ketones Negative (Negative) Urine Blood Negative (Negative) Urine Nitrite Negative (Negative) Urine Bilirubin Negative (Negative) Urine Urobilinogen <2.0 (<2.0) mg/dL Ur Leukocyte Esterase Negative (Negative) Disposition Clinical Impression: Abdominal pain Disposition: HOME SELF-CARE Condition: Stable Instructions (If sedation given, give patient instructions): Abdominal Pain (ED) Additional Instructions: Please do follow-up with your primary care physician in the next couple of days for recheck. Return for increased pain, fever, vomiting, worsening or changing symptoms or other concerns. Is patient prescribed a controlled substance at d/c from ED?: No Referrals: Rodríguez Benjamin DO [Primary Care Provider] - 1-2 days Time of Disposition: 17:31
[2024-12-03 15:49] LABS: Basophils # (A) 0.11 10*3/uL (0.00-0.10); Basophils % (A) 1.2 %; Eosinophils # (A) 0.68 10*3/uL (0.04-0.35); Eosinophils % (A) 7.4 %; HCT 41.3 % (39.6-50.0); HGB 14.1 g/dL (13.0-17.0); Lymphocytes # (A) 2.47 10*3/uL (0.90-5.00); Lymphocytes % (A) 27.0 %; MCH 30.5 pg (27.0-32.0); MCHC 34.1 g/dL (32.0-37.0); MCV 89.4 fL (80.0-97.0); Monocytes # (A) 0.75 10*3/uL (0.20-1.00); Monocytes % (A) 8.2 %; Neutrophils # (A) 5.12 10*3/uL (1.80-7.70); Neutrophils % (A) 55.9 %; Platelet Count 197 10*3/uL (140-440); RBC 4.62 10*6/uL (4.40-5.60); RDW 13.2 % (11.5-14.5); WBC 9.16 10*3/uL (4.50-10.00)
[2024-12-03 16:08] LABS: Chloride 104 mmol/L (98-107); Glucose 125 mg/dL (74-99); Potassium 4.2 mmol/L (3.5-5.1); Sodium 138 mmol/L (137-145)
[2024-12-03 16:09] LABS: ALT 75 U/L (4-49); AST 108 U/L (17-59); African American GFR (CKD) >90 (>60 ml/min/1.73 sqM); Albumin 4.1 g/dL (3.5-5.0); Alkaline Phosphatase 61 U/L (38-126); Amylase 64 U/L (30-110); Anion Gap 10 mmol/L; Blood Urea Nitrogen 12 mg/dL (9-20); Calcium 9.7 mg/dL (8.4-10.2); Carbon Dioxide 24 mmol/L (22-30); Lipase 240 U/L (23-300); Non-African American GFR(CKD) >90 (>60 ml/min/1.73 sqM); Total Protein 6.5 g/dL (6.3-8.2)
[2024-12-03 16:24] LABS: INR 1.0 (<1.2); Prothrombin Time 11.2 sec (10.0-12.5)
[2024-12-03 16:29] LABS: Partial Thromboplastin Time 21.2 sec (22.0-30.0)
[2024-12-03 16:34] LABS: Bilirubin,Urine Negative (Negative); Blood,Urine Negative (Negative); Color,Urine Colorless; Glucose,Urine (UA) Negative (Negative); Ketones,Urine Negative (Negative); Leukocyte Esterase,Urine Negative (Negative); Nitrite,Urine Negative (Negative); PH, Urine 7.0 (5.0-8.0); Protein,Urine Negative (Negative); Specific Gravity,Urine 1.006 (1.001-1.035); Urobilinogen,Urine <2.0 mg/dL (<2.0)
--- NOTE | 2024-12-03 17:10 | CT ---
EXAMINATION TYPE: CT abdomen pelvis wo con DATE OF EXAM: 12/03/2024 4:46 PM COMPARISON: None. CLINICAL INDICATION: Male, 79 years old with history of R flank pain, rlq pain TECHNIQUE: Axial images with sagittal coronal reformats. Examination of the solid and hollow viscera is limited given the lack of contrast. CT DLP: 497.4 mGycm, Automated exposure control for dose reduction was used. FINDINGS: LUNG BASES: No evidence for nodule. No evidence for infiltrate. LIVER/GB: Gallbladder surgically absent. No space-occupying hepatic lesion. PANCREAS: No pancreatic mass identified. No inflammatory process seen. SPLEEN: No evidence for splenomegaly. No intrasplenic lesions seen. ADRENALS: No adrenal nodules identified. No evidence for thickening. KIDNEYS: No evidence for renal mass. No nephrolithiasis. No hydronephrosis. Urinary bladder diverticu lum on the left. BOWEL: Duodenal diverticulum noted. Appendix has a normal appearance. No evidence of bowel obstructio n. No inflammatory process. Lymph nodes: No evidence for adenopathy greater than 1 cm. Abdominal aorta: Atheromatous changes seen. No evidence for aneurysm. Genital organs: No significant abnormality. Other: No significant abnormality. IMPRESSION: NO ACUTE PROCESS SEEN. [facility], , 12/03/2024 5:07 PM
== END 2024-12-03 18:21 | disposition home or self-care (01) ==
LOC: EC 14:48
DX: R10.31 Right lower quadrant pain (principal); Z87.891 Personal history of nicotine dependence; Z88.5 Allergy status to narcotic agent; Z88.8 Allergy status to other drugs, medicaments and biological substances
CPT/HCPCS: 36415; 74176; 80053; 81003; 82150; 83605; 83690; 85025; 85610; 85730; 99284